=== PATIENT | male | born 1985 | race Caucasian/White ===

== ENCOUNTER 2020-01-01 10:09 | Emergency (ER) | payer MEDICAID ==
[~2020-01-01] VITALS: Ht 165.1 cm; Wt 54.4 kg
--- NOTE | 2020-01-01 10:10 | NUR ---
[id number], from [facility], c/o leg pain and headache x 1 week, 01/08 ps. On room air, breathing evenly and unlabored. connected to the monitor and pulse ox. kept comfortable, will continue to monitor accordingly.
[2020-01-01] MEDS ORDERED: CEPHALEXIN MONOHYDRATE 500 MG CAPSULE PO ONE ×2 (11:11→11:30)
[2020-01-01] MEDS ORDERED: IBUPROFEN 600 MG TABLET PO ONE ×2 (11:11→11:30)
[2020-01-01] MEDS ORDERED: ACETAMINOPHEN ES 500 MG TABLET ONE (11:11)
[2020-01-01] MEDS ORDERED: SULFAMETH/TRIMETH 800/160 MG 1 UDTAB TABLET ONE (11:12)
[2020-01-01] MEDS ORDERED: ACETAMINOPHEN ES 500 MG TABLET PO ONE (11:30)
[2020-01-01] MEDS ORDERED: CLOTRIMAZOLE 1% 15 GM TUBE TP SCH ×2 (11:30)
[2020-01-01] MEDS ORDERED: SULFAMETH/TRIMETH 800/160 MG 1 UDTAB TABLET PO ONE (11:30)
--- NOTE | 2020-01-01 12:19 | NUR ---
PT REFUSED BLOOD DRAW X2 NOTIFIED
[2020-01-01 15:03] VITALS: BP 115/71
--- NOTE | 2020-01-01 15:04 | NUR ---
Patient given written and verbal discharge instructions. Patient verbalizes understanding of instructions. Patient is ambulatory with steady gait. Refuses offer of longterm placement. Patient given list of available shelters in surrounding area.
== END 2020-01-01 15:03 | disposition home or self-care (01) ==
LOC: ER 10:12
DX: L03.116 Cellulitis of left lower limb (principal); L03.115 Cellulitis of right lower limb; L02.612 Cutaneous abscess of left foot; L02.611 Cutaneous abscess of right foot; F32.9 Major depressive disorder, single episode, unspecified; F41.9 Anxiety disorder, unspecified; F20.9 Schizophrenia, unspecified; Z59.0 Homelessness
CPT/HCPCS: 73620-TC